=== PATIENT | female | born 1935 | race Caucasian/White ===

== ENCOUNTER 2020-07-16 15:03 | Inpatient (IN) | payer MEDICARE, OTHER ==
[~2020-07-16 15:03] MED LIST: ALLOPURINOL100 MG PO; AZITHROMYCIN250 MG PO; CEFDINIR300 MG PO; CERTAGEN1 EACH PO; COL-RITE100 MG PO; COMBIVENT RESPIM4 GM INH; DIGITEK125 MCG PO; ELAVIL50 MG PO; FIORICET1 EACH PO; HCTZ25 MG PO; LASIX80 MG PO; LEVAQUIN500 MG PO; LINZESS145 MCG PO; MICRO-K10 MEQ PO; NEURONTIN600 MG PO; NORCO 5-325 TA1 EACH PO; NORVASC10 MG PO; NORVASC5 MG PO; OXYGEN; PHENERGAN12.5 M1 PO; PLAVIX75 MG PO; PRAVACHOL20 M1 PO; PROTONIX 40MG T40 MG PO; SYNTHROID75 MCG PO; TESSALON PERLE100 MG PO; TOPROL XL 50 MG50 MG PO; XANAX0.25 MG PO; ZESTRIL40 MG PO
[2020-07-16 16:19] LABS: BASOPHIL 0.3 % (0-2); EOSINOPHIL 0 % (0-7); HCT 36.2 % (37.0-47.0); HGB 11.9 g/dl (12.5-16.0); LYMPHOCYTE 1.7 % (15-48); MCH 33.9 pg (25.0-31.0); MCHC 32.9 g/dL (32.0-36.0); MCV 103.1 fL (78.0-100.0); MONOCYTE 6.1 % (0-12); MPV 8.8 fL (6.0-9.5); NEUTROPHIL 91.6 % (41-80); NRBC 0; PLT 195 K/uL (150-400); RBC 3.51 M/uL (4.20-5.40); RDW 13.2 % (11.5-14.0)
[2020-07-16 16:24] LABS: INR 1.07 (0.9-1.2); PROTHROMBIN TIME 13.2 SECONDS (11.4-13.6); PTT 35.5 SECONDS (22.2-34.7)
[2020-07-16 16:25] LABS: D-DIMER 3.44 ug/mLFEU (0.00-0.41)
[2020-07-16 16:28] LABS: WBC 15.8 K/uL (4.0-10.5)
[2020-07-16 16:29] LABS: ALBUMIN 3.1 g/dL (3.4-5.0); BILIRUBIN - TOTAL 0.4 mg/dL (0.2-1.0); BUN/CREAT RATIO (CALC) 33.9 RATIO; CREATININE 0.59 mg/dL (0.51-0.95); GLOBULIN (CALCULATION) 3.5 g/dL; TOTAL PROTEIN 6.6 g/dL (6.4-8.2)
[2020-07-16 16:33] LABS: LACTIC ACID 0.7 mmol/L (0.4-1.9)
[2020-07-16 17:22] LABS: CORONAVIRUS 2019 SARS-COV-2 NEGATIVE (NEGATIVE); INFLUENZA A NAA NEGATIVE (NEGATIVE)
[2020-07-16 17:51] LABS: BILIRUBIN NEGATIVE (NEGATIVE); BLOOD 2+ Ery/uL (NEGATIVE); CLARITY CLEAR (CLEAR); COLOR YELLOW (YELLOW); GLUCOSE (U) NORMAL (NORMAL); LEUKOCYTES NEGATIVE Leu/uL (NEGATIVE); NITRITE POSITIVE (NEGATIVE); PROTEIN NEGATIVE (NEGATIVE); UROBILINOGEN 0.2 mg/dL (0.2-1.0)
[2020-07-16 17:57] LABS: BACTERIA 2+; SQUAMOUS EPITHELIAL CELLS RARE
[2020-07-17 03:29] LABS: BASOPHIL 0.2 % (0-2); EOSINOPHIL 0 % (0-7); HCT 32.9 % (37.0-47.0); HGB 10.8 g/dl (12.5-16.0); MCH 34.1 pg (25.0-31.0); MCHC 32.8 g/dL (32.0-36.0); MCV 103.8 fL (78.0-100.0); MONOCYTE 6.3 % (0-12); MPV 8.3 fL (6.0-9.5); NEUTROPHIL 90.2 % (41-80); NRBC 0; PLT 163 K/uL (150-400); RBC 3.17 M/uL (4.20-5.40); RDW 13.2 % (11.5-14.0)
[2020-07-17 03:38] LABS: WBC 12.5 K/uL (4.0-10.5)
[2020-07-17 03:50] LABS: CREATININE 0.5 mg/dL (0.51-0.95); POTASSIUM 3.5 mmol/L (3.5-5.1)
--- NOTE | 2020-07-17 12:54 | NUR ---
PT LIVES WITH SPOUSE AND HAS HOME 02
--- NOTE | 2020-07-18 16:21 | NUR ---
07/18/20 [facility] is current. Please notify [facility] if discharged over the weekend, [phone].
[2020-07-19 06:59] LABS: BASOPHIL 0.1 % (0-2); EOSINOPHIL 0.2 % (0-7); HGB 11.2 g/dl (12.5-16.0); LYMPHOCYTE 5.7 % (15-48); MCV 106.4 fL (78.0-100.0); MONOCYTE 7.6 % (0-12); MPV 8.9 fL (6.0-9.5); NRBC 0; PLT 184 K/uL (150-400); RBC 3.29 M/uL (4.20-5.40); RDW 13.2 % (11.5-14.0); WBC 9.7 K/uL (4.0-10.5)
[2020-07-19 07:17] LABS: BUN/CREAT RATIO (CALC) 35.7 RATIO; CREATININE 0.56 mg/dL (0.51-0.95); POTASSIUM 3.3 mmol/L (3.5-5.1)
--- NOTE | 2020-07-20 11:41 | NUR ---
CARPENTER/LABOR EQUAL, NO DROOPING, PUPILS SLUGGISH BUT EQUAL. DAUGHTER CONCERNED D/T MENTAL STATUS, FORGETFUL. CT SCAN ORDERED PER REQUEST
--- NOTE | 2020-07-20 15:07 | NUR ---
CT SCAN COMPLETED. MRI ORDERED TOMORROW D/T RESULTS OF SCAN. DR GOLDEN DISCUSSED RESULTS WITH DAUGHTER. PT NEEDS CUEING WITH TASKS, FORGETFUL
[2020-07-21] MEDS ORDERED: ASPIRIN EC81 MG PO (13:05)
--- NOTE | 2020-07-21 15:22 | NUR ---
07/21/20 Ms. Nicole lives with spouse. She has home 02. [facility] is current. [facility] was notified of today's discharge.
== END 2020-07-21 16:40 | disposition home health service (06) | DRG 64 ==
LOC: FER 15:03 → FMS 19:16
PROVIDERS: Emergency Medicine; Nurse Practitioner; ADMIT Internal Medicine
DX: I63.9 Cerebral infarction, unspecified (principal); G93.6 Cerebral edema; J44.1 Chronic obstructive pulmonary disease with (acute) exacerbation; N39.0 Urinary tract infection, site not specified; Z68.1 Body mass index [BMI] 19.9 or less, adult; C08.9 Malignant neoplasm of major salivary gland, unspecified; I10 Essential (primary) hypertension; E03.9 Hypothyroidism, unspecified; M10.9 Gout, unspecified; E87.6 Hypokalemia; Z51.5 Encounter for palliative care; I48.91 Unspecified atrial fibrillation; R63.6 Underweight; Z90.49 Acquired absence of other specified parts of digestive tract; Z98.890 Other specified postprocedural states; Z99.81 Dependence on supplemental oxygen; Z87.891 Personal history of nicotine dependence; Z91.041 Radiographic dye allergy status; Z88.5 Allergy status to narcotic agent
CPT/HCPCS: 36415; 36600; 70450; 70544; 70548; 70553; 71045; 71275; 80048; 80053; 81001; 82803; 83605; 83880; 84484; 85025; 85379; 85610; 85730; 87040; 87076; 87088; 87186; 92507; 92526; 93005; 94010; 94640; 97110; 97116; 97162; 97165; 97530-GP; A9579; J0696; J1642; J1650; J1956; J2405; J7030; J7512; Q9967; U0002

== ENCOUNTER 2020-07-23 12:06 | Emergency (ER) | payer MEDICARE, OTHER ==
[~2020-07-23 12:06] MED LIST changes: +ASPIRIN EC81 MG PO
[2020-07-23 12:40] LABS: BILIRUBIN NEGATIVE (NEGATIVE); BLOOD TRACE-INTACT Ery/uL (NEGATIVE); CLARITY CLEAR (CLEAR); COLOR YELLOW (YELLOW); GLUCOSE (U) NORMAL (NORMAL); LEUKOCYTES NEGATIVE Leu/uL (NEGATIVE); NITRITE NEGATIVE (NEGATIVE); PROTEIN NEGATIVE (NEGATIVE); SPECIFIC GRAVITY 1.015 (1.001-1.030); UROBILINOGEN 0.2 mg/dL (0.2-1.0); pH 6.5 (5.0-9.0)
[2020-07-23 12:45] LABS: SQUAMOUS EPITHELIAL CELLS RARE; URINARY WBC RARE
[2020-07-23 13:25] LABS: BASOPHIL 0.1 % (0-2); EOSINOPHIL 0.9 % (0-7); HCT 40.1 % (37.0-47.0); HGB 13.1 g/dl (12.5-16.0); LYMPHOCYTE 6.3 % (15-48); MCH 33.9 pg (25.0-31.0); MCHC 32.7 g/dL (32.0-36.0); MCV 103.9 fL (78.0-100.0); MONOCYTE 5.9 % (0-12); MPV 8.6 fL (6.0-9.5); NEUTROPHIL 86.4 % (41-80); NRBC 0; PLT 243 K/uL (150-400); RBC 3.86 M/uL (4.20-5.40); RDW 12.8 % (11.5-14.0); WBC 10.1 K/uL (4.0-10.5)
[2020-07-23 14:00] LABS: IRON % SATURATION 38.2 %SAT (20-50)
[2020-07-23 14:06] LABS: PRO-BNP 941 pg/mL (<450)
[2020-07-23 14:09] LABS: ALBUMIN 3.1 g/dL (3.4-5.0); BILIRUBIN - TOTAL 0.3 mg/dL (0.2-1.0); BUN/CREAT RATIO (CALC) 33.3 RATIO; CREATININE 0.51 mg/dL (0.51-0.95); GLOBULIN (CALCULATION) 3.5 g/dL; MAGNESIUM 2.1 mg/dL (1.8-2.4); POTASSIUM 3.5 mmol/L (3.5-5.1); TOTAL PROTEIN 6.6 g/dL (6.4-8.2)
[2020-07-23 14:46] LABS: LACTIC ACID 0.6 mmol/L (0.4-1.9)
[2020-07-23 15:35] LABS: PROTHROMBIN TIME 12.5 SECONDS (11.4-13.6); PTT 24.1 SECONDS (22.2-34.7)
[2020-07-23 15:36] LABS: D-DIMER 2.59 ug/mLFEU (0.00-0.41)
== END 2020-07-23 18:03 | disposition home or self-care (01) ==
LOC: FER 12:06
PROVIDERS: Emergency Medicine
DX: J44.9 Chronic obstructive pulmonary disease, unspecified (principal); C80.1 Malignant (primary) neoplasm, unspecified; C78.02 Secondary malignant neoplasm of left lung; C78.01 Secondary malignant neoplasm of right lung; R41.82 Altered mental status, unspecified; Z86.73 Personal history of transient ischemic attack (TIA), and cerebral infarction without residual deficits; I10 Essential (primary) hypertension; Z20.822 Contact with and (suspected) exposure to COVID-19; Z87.891 Personal history of nicotine dependence; Z88.5 Allergy status to narcotic agent; Z91.041 Radiographic dye allergy status
CPT/HCPCS: 36415; 70450; 71250; 80053; 81001; 82728; 83540; 83550; 83605; 83735; 83880; 84145; 84484; 85025; 85379; 85610; 85730; 86140; 87040; 93005; U0002

== ENCOUNTER 2020-09-17 20:17 | Inpatient (IN) | payer MEDICARE, OTHER ==
[~2020-09-17] VITALS: Ht 152.4 cm; Wt 38.6 kg
[2020-09-17 21:16] LABS: BASOPHIL 0.4 % (0-2); EOSINOPHIL 1.3 % (0-7); HCT 27.8 % (37.0-47.0); HGB 9.1 g/dl (12.5-16.0); LYMPHOCYTE 5.6 % (15-48); MCH 34.2 pg (25.0-31.0); MCHC 32.7 g/dL (32.0-36.0); MCV 104.5 fL (78.0-100.0); MONOCYTE 8.3 % (0-12); MPV 8.8 fL (6.0-9.5); NEUTROPHIL 84.1 % (41-80); NRBC 0; PLT 282 K/uL (150-400); RBC 2.66 M/uL (4.20-5.40); RDW 14.4 % (11.5-14.0); WBC 9.2 K/uL (4.0-10.5)
[2020-09-17 21:20] LABS: PROTHROMBIN TIME 12.5 SECONDS (11.4-13.6)
[2020-09-17 21:44] LABS: ALBUMIN 2.9 g/dL (3.4-5.0); BILIRUBIN - TOTAL 0.2 mg/dL (0.2-1.0); BUN/CREAT RATIO (CALC) 41.1 RATIO; C-REACTIVE PROTEIN 0.4 mg/dL (<=0.90); CREATININE 0.73 mg/dL (0.51-0.95); GLOBULIN (CALCULATION) 3.2 g/dL; TOTAL PROTEIN 6.1 g/dL (6.4-8.2)
[2020-09-18] MEDS ORDERED: TOPROL XL 50 MG50 MG PO (02:54)
[2020-09-18] MEDS ORDERED: PRAVACHOL20 MG PO (02:55)
[2020-09-18] MEDS ORDERED: ELAVIL50 MG PO (02:55)
[2020-09-18] MEDS ORDERED: TESSALON PERLE100 MG PO (02:56)
[2020-09-18] MEDS ORDERED: NORVASC 5MG TABL5 MG PO (02:58)
[2020-09-18] MEDS ORDERED: ALLOPURINOL 10100 MG PO (02:59)
[2020-09-18] MEDS ORDERED: DIGITEK125 MCG PO (03:00)
[2020-09-18] MEDS ORDERED: PRINIVIL10 MG PO (03:01)
[2020-09-18] MEDS ORDERED: LASIX40 MG PO (03:01)
[2020-09-18] MEDS ORDERED: HCTZ12.5 MG PO (03:02)
[2020-09-18] MEDS ORDERED: ONE DAILY WOME1 EAC1 PO (03:03)
[2020-09-18] MEDS ORDERED: COMBIVENT RESPIM4 GM INH (03:05)
[2020-09-18] MEDS ORDERED: ZOFRAN4 M1 PO (03:07)
[2020-09-18] MEDS ORDERED: CIPRO250 MG PO (03:08)
[2020-09-19 07:53] LABS: BASOPHIL 0.4 % (0-2); HCT 28.9 % (37.0-47.0); HGB 9.4 g/dl (12.5-16.0); LYMPHOCYTE 11.9 % (15-48); MCH 34.2 pg (25.0-31.0); MCHC 32.5 g/dL (32.0-36.0); MCV 105.1 fL (78.0-100.0); MONOCYTE 9.5 % (0-12); MPV 8.8 fL (6.0-9.5); NRBC 0; PLT 255 K/uL (150-400); RBC 2.75 M/uL (4.20-5.40); RDW 14.5 % (11.5-14.0); WBC 5.1 K/uL (4.0-10.5)
[2020-09-19 08:01] LABS: ALBUMIN 2.8 g/dL (3.4-5.0); BILIRUBIN - TOTAL 0.2 mg/dL (0.2-1.0); BUN/CREAT RATIO (CALC) 36.2 RATIO; CREATININE 0.69 mg/dL (0.51-0.95); GLOBULIN (CALCULATION) 3.2 g/dL; POTASSIUM 3.8 mmol/L (3.5-5.1)
[2020-09-19] MEDS ORDERED: ALLOPURINOL100 MG PO (11:41)
[2020-09-19] MEDS ORDERED: PREDNISONE 20MG20 MG PO (11:41)
[2020-09-19] MEDS ORDERED: AZITHROMYCIN250 MG PO (11:41)
[2020-09-19] MEDS ORDERED: TOPROL XL 25MG25 MG PO (11:41)
[2020-09-19] MEDS ORDERED: MACROBID100 MG PO (14:00)
== END 2020-09-19 15:24 | disposition home health service (06) | DRG 190 ==
LOC: FER 20:17 → FMS 09-18 00:06
PROVIDERS: Emergency Medicine; Nurse Practitioner; ADMIT Internal Medicine
DX: J43.9 Emphysema, unspecified (principal); E43 Unspecified severe protein-calorie malnutrition; Z68.1 Body mass index [BMI] 19.9 or less, adult; R64 Cachexia; N39.0 Urinary tract infection, site not specified; C78.00 Secondary malignant neoplasm of unspecified lung; E03.9 Hypothyroidism, unspecified; M10.9 Gout, unspecified; I71.4 Abdominal aortic aneurysm, without rupture; Z20.822 Contact with and (suspected) exposure to COVID-19; R47.81 Slurred speech; I11.0 Hypertensive heart disease with heart failure; I50.9 Heart failure, unspecified; G43.909 Migraine, unspecified, not intractable, without status migrainosus; K74.60 Unspecified cirrhosis of liver; F32.9 Major depressive disorder, single episode, unspecified; I48.91 Unspecified atrial fibrillation; Z99.81 Dependence on supplemental oxygen; Z79.899 Other long term (current) drug therapy; Z88.5 Allergy status to narcotic agent; Z91.041 Radiographic dye allergy status; Z85.89 Personal history of malignant neoplasm of other organs and systems; Z92.3 Personal history of irradiation; Z92.21 Personal history of antineoplastic chemotherapy; Z95.1 Presence of aortocoronary bypass graft; Z98.890 Other specified postprocedural states; Z90.49 Acquired absence of other specified parts of digestive tract; Z87.891 Personal history of nicotine dependence; Z86.73 Personal history of transient ischemic attack (TIA), and cerebral infarction without residual deficits; I25.2 Old myocardial infarction; Z80.8 Family history of malignant neoplasm of other organs or systems; Z82.3 Family history of stroke; Z90.710 Acquired absence of both cervix and uterus
CPT/HCPCS: 36415; 71250; 80053; 80162; 82728; 83605; 83615; 83880; 84145; 84484; 85025; 85610; 86140; 87040; 93005; 94640; 94760; 94762; 97116; 97162; 97166; 97530-GP; 97535; J0696; J1642; J1650; J2800; J2930; J3486; J7050; J7512; U0002